=== PATIENT | male | born 1980 | race Caucasian/White ===

== ENCOUNTER → 2019-06-21 | Outpatient (CLI) | payer OTHER | LOC: COL.RAD 08:38 | DX: M23.8X1 Other internal derangements of right knee (principal); M23.321 Other meniscus derangements, posterior horn of medial meniscus, right knee ==

== ENCOUNTER 2019-06-22 08:17 | Outpatient (RCR) | payer OTHER | END 2019-06-29 13:41 | disposition home or self-care (01) | LOC: WSOH 08:17 | DX: M23.611 Other spontaneous disruption of anterior cruciate ligament of right knee (principal); X50.0XXA Overexertion from strenuous movement or load, initial encounter; Y93.89 Activity, other specified; Y92.512 Supermarket, store or market as the place of occurrence of the external cause; Y99.0 Civilian activity done for income or pay ==

== ENCOUNTER → 2019-09-06 | Outpatient (CLI) | payer OTHER | LOC: COL.VAS 10:53 | DX: M79.89 Other specified soft tissue disorders (principal) ==

== ENCOUNTER → 2019-12-17 | Outpatient (CLI) | payer OTHER | LOC: COL.VAS 14:12 | DX: R60.0 Localized edema (principal); Z96.651 Presence of right artificial knee joint ==

== ENCOUNTER → 2022-07-28 | Outpatient (CLI) | payer OTHER ==
[2022-07-28 14:42] LABS: AMYLASE 20 U/L (25-125); LIPASE 21 U/L (8-78)
== END ==
LOC: ZCOL.LAB 14:33
PROVIDERS: Family Medicine
DX: R11.2 Nausea with vomiting, unspecified (principal); R10.9 Unspecified abdominal pain